=== PATIENT | male | born 1980 | race African-American/Black ===

== ENCOUNTER → 2017-11-16 | Outpatient (CLI) | payer OTHER ==
--- NOTE | 2017-11-16 10:24 | REP ---
Clinical: Trauma to right hemithorax . Comparison: None . Technique: PA and lateral. Findings: The mediastinum and cardiac silhouette are normal. The lung stout are clear and without acute consolidation, effusion, or pneumothorax. The skeletal structures are intact and normal. Impression: 1. No acute cardiopulmonary process. Signed by Stevenson Pressley MD 11/16/2017 10:15 A
--- NOTE | 2017-11-16 10:33 | REP ---
Clinical: Right chest trauma. Technique: Multiple oblique views of the right hemithorax. Findings: Very subtle nondisplaced posterolateral right 9th rib fracture cannot be excluded and should be correlated clinically. Remainder examination appears normal. Impression: Cannot exclude very subtle nondisplaced posterolateral 9th rib fracture. Signed by Stevenson Pressley MD 11/16/2017 10:25 A
== END ==
LOC: M RAD 09:26
PROVIDERS: ATTEND Surgery
DX: S29.8XXA Other specified injuries of thorax, initial encounter (principal); W50.0XXA Accidental hit or strike by another person, initial encounter; Y92.89 Other specified places as the place of occurrence of the external cause; Y93.89 Activity, other specified; Y99.8 Other external cause status